=== PATIENT | male | born 1950 | race Caucasian/White ===

== ENCOUNTER 2017-10-03 18:40 | Emergency (ER) | payer BC, OTHER ==
[2017-10-03 18:46] VITALS: BP 139/81; PULSE 60; TEMP 97.4; BMI 24.4
[2017-10-03] MEDS ORDERED: LIDOCAINE HCL 2% (20ML MULTI-DOSE VIAL) NR ONE (20:01)
[2017-10-03] MEDS ORDERED: AMOX TR/POT CLAV 875MG/125MG TABLETS (FP) PO ONE (22:15)
[2017-10-03] MEDS ORDERED: AMOX TR/POT CLAV 875MG/125MG TABLETS (FP) ONE (22:16)
--- NOTE | 2017-10-03 22:20 | PDOC ---
History of Present Illness - General Chief Complaint: Laceration Stated Complaint: FINGER LAC Time Seen by Provider: 10/03/17 18:44 History Source: Patient Exam Limitations: No Limitations - History of Present Illness Initial Comments: 10/03/17 22:30 67 year old male with past medical history of lewy bodies, right hand dominant presents with left thumb injury. The patient was using an electric drill to drill holes. It slipped and injured his left thumb. Occurred today. Sustained a laceration through his nail, nailbed. Denies numbness, weakness. Last tetanus 1 year ago. 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 Past History - Past Medical History Allergies/Adverse Reactions: Allergies Allergy/AdvReac Type Severity Reaction Status Date / Time No Known Allergies Allergy Verified 10/03/17 18:41 Home Medications: Ambulatory Orders Amoxicillin/Potassium Clav [Augmentin 875-125 Tablet] 1 each PO BID #14 tablet 10/03/17 Aspirin [ASA -] 81 mg PO DAILY 10/03/17 Carbamazepine [Carbamazepine ER] 300 mg PO BID 10/03/17 Oxycodone HCl 5 mg PO Q6H PRN #20 tablet MDD 4 10/03/17 COPD: No Seizures: Yes - Suicide/Smoking/Psychosocial Hx Smoking History: Never smoked Hx Alcohol Use: No Drug/Substance Use Hx: No Substance Use Type: Alcohol Review of Systems - Review of Systems Able to Perform ROS?: Yes Comments:: 10/03/17 22:33 GENERAL/CONSTITUTIONAL: No fever, weakness. HEAD, EYES, EARS, NOSE AND THROAT: No change in vision. No ear pain or discharge. No sore throat. CARDIOVASCULAR: No chest pain or shortness of breath. RESPIRATORY: No cough, wheezing, or hemoptysis. GASTROINTESTINAL: No abdominal pain, nausea, vomiting, diarrhea, or decreased PO intolerance. GENITOURINARY: No dysuria, frequency, or change in urination. MUSCULOSKELETAL: +left thumb injury SKIN: No rash NEUROLOGIC: No headache, vertigo, loss of consciousness, or change in strength/ sensation. ENDOCRINE: No increased thirst. No abnormal weight change. HEMATOLOGIC/LYMPHATIC: No anemia, easy bleeding, or history of blood clots. ALLERGIC/IMMUNOLOGIC: No hives or skin allergy. *Physical Exam - Vital Signs Last Vital Signs Temp Pulse Resp BP Pulse Ox 97.4 F L 60 16 139/81 100 10/03/17 18:41 10/03/17 18:41 10/03/17 18:41 10/03/17 18:41 10/03/17 18:41 - Physical Exam Comments: 10/03/17 22:33 GENERAL: Awake, alert, and fully oriented, in no acute distress. HEAD: No signs of trauma EYES: PERRLA, EOMI, sclera anicteric, conjunctiva clear ENT: Auricles normal inspection, hearing grossly normal, nares patent NECK: Normal ROM, supple, EXTREMITIES: Normal range of motion, no edema. No clubbing or cyanosis. No cords, erythema, or tenderness LUE: Examined under a bloodless field. 2+ radial pulse. < 2 sec cap refill in all digits. Full flexion and extension of each digit. Sensation and strength intact median/radian/ulnar nerve. Nail plate partially avulsed from nail bed and germinal matrix. Nailbed with approximately small avulsion injury approx 2 cm with skin avulsion at the proximal end. Field examined under a bloodless field (with tourniquet on) NEUROLOGICAL: Cranial nerves II through XII grossly intact. Normal speech, normal gait SKIN: Warm, Dry, normal turgor, no rashes or lesions noted. Procedures - Laceration/Wound Repair Left 1st digit Wound Length: to 2.5 cm Wound Explored: clean Wound's Depth, Shape: irregular, flap, nail-avulsed Irrigated w/ Saline: Yes Anesthesia: 2% Lidocaine Amount of Anesthetic (ccs): 10 Wound Debrided: minimal Wound Repaired With: Sutures Suture Size/Type: 4:0, other Number of Sutures: 7 Sterile Dressing Applied: No Progress: 10/03/17 22:58 Wound soaked in normal saline and beta-iodine for approximately 30 minutes. Approximately 10cc of 2% lidocaine without epinephrine was utilized for ring block with excellent anesthesia. Nail was lifted off and irrigated with approximately 400 cc of normal saline. Laceration was identified and 7 4-0 polysorb sutures were placed. Nail was replaced into the germinal matrix. Patient continued to ooze blood (pt is taking aspirin). After holding pressure for about 15 minutes, the bleeding slowed down significantly to a near stop. A xeroform and gauze was applied. Thumb splint was then applied. ED Treatment Course - RADIOLOGY Radiology Studies Ordered: Category Date Time Status FINGER(S) LEFT [RAD] Stat Radiology 10/03/17 19:05 Completed Medical Decision Making - Medical Decision Making 10/03/17 23:06 Vital Signs Temp Pulse Resp BP Pulse Ox 97.4 F L 60 16 139/81 100 10/03/17 18:41 10/03/17 18:41 10/03/17 18:41 10/03/17 18:41 10/03/17 18:41 67 year old male with 1st left thumb injury. Xray reviewed: demonstrates a distal tuft fracture nondisplaced. Case discussed with Dr. Polo Barr Recommends to remove nail plate, repair lacerations, replace nail plate, and place patient on prophylatic antibiotics and to have the patient follow up with him tomorrow. See procedure note for details of procedure. Pt written a prescription for augmentin. Emphasized to patient that he needs to follow up with Dr. Barr tomorrow. Wound infection and fever precautions given. Pt already received tetanus last year. I discussed the physical exam findings, ancillary test results and final diagnoses with the patient. I answered all of the patient's questions. The patient was satisfied with the care received and felt comfortable with the discharge plan and treatment plan. The patient will call their primary care physician within 24 hours to arrange follow-up and will return to the Emergency Department with any new, persistant or worsening symptoms. *DC/Admit/Observation/Transfer Diagnosis at time of Disposition: Laceration Thumb fracture Qualifiers: Encounter type: initial encounter Fracture type: closed Phalanx: proximal Fracture alignment: nondisplaced Laterality: left Qualified Code(s): S62.515A - Nondisplaced fracture of proximal phalanx of left thumb, initial encounter for closed fracture Nailbed laceration, finger Qualifiers: Encounter type: initial encounter Qualified Code(s): S61.319A - Laceration without foreign body of unspecified finger with damage to nail, initial encounter - Discharge Dispostion Disposition: HOME Condition at time of disposition: Stable Admit: No - Prescriptions Prescriptions: Amoxicillin/Potassium Clav [Augmentin 875-125 Tablet] 1 each PO BID #14 tablet Oxycodone HCl 5 mg PO Q6H PRN #20 tablet MDD 4 PRN Reason: Hand Pain - Referrals Referrals: Polo Barr MD [Staff Physician] - - Patient Instructions Printed Discharge Instructions: DI for Laceration Repair, DI for Nail Avulsion Injury, DI for Nail Bed Injury Additional Instructions: You have 7 removable sutures placed. Your nail plate is in place, but it is covering your wound at the moment. It is slightly loose, so please be cautious when moving your finger. Your finger also has a broken bone as well. Wear the splint. You may change the dressing daily. Use to cover the xeroform and then cover with gauze. Cover with the splint. It is important to take the antibiotics 875 mg augmentin every 12 hours for 1 week to help prevent infection. However, if you start to develop fever, redness, or pus at the finger, this is an emergency and you must return to the ER. Dr. Polo Barr (plastics surgeon) would like to see you tomorrow. Please call his office tomorrow and schedule a follow up. - Post Discharge Activity
== END 2017-10-03 22:23 | disposition home or self-care (01) ==
LOC: FER 18:40
PROC: 0HQGXZZ Repair Left Hand Skin, External Approach (ICD-10-PCS; principal; 2017-10-03)
DX: S61.112A Laceration without foreign body of left thumb with damage to nail, initial encounter (principal); S62.515A Nondisplaced fracture of proximal phalanx of left thumb, initial encounter for closed fracture; S61.319A Laceration without foreign body of unspecified finger with damage to nail, initial encounter; W22.8XXA Striking against or struck by other objects, initial encounter; Y93.89 Activity, other specified; Y92.9 Unspecified place or not applicable; Y99.0 Civilian activity done for income or pay
CPT/HCPCS: 73140-TC-LT; 99282-25